=== PATIENT | female | born 1975 | race American Indian/Alaskan Native ===

== ENCOUNTER 2016-08-26 10:28 | Emergency (ER) | payer SELFPAY ==
--- NOTE | 2016-08-26 10:40 | Emergency Department Report ---
Chief Complaint: Vaginal Bleeding Stated Complaint: MENSTRUAL CRAMPING, BLEEDING Time Seen by Provider: 08/26/16 10:40 - HPI History of Present Illness: PT reports having "really, really, really heavy [vaginal] bleeding and clots" PT states 1-2 years ago she was told that she had fibroids. PT states they usually don't cause her problems. lmp 7-16-17. PT states she could not sleep last night due to the pain - PT states she took one Excedrin last night - ROS Review of Systems: + vaginal bleeding + lower abd pain - dysuria - Exam Physical Exam: PT looks well, non toxic abd is soft and non tender. pt does report lower abd pain MSE screening note: Focused history and physical exam performed. Due to findings the following was ordered: labs, us - Exam Vital Signs: Vital Signs 08/26/16 08/26/16 10:30 10:37 Temperature 98.6 F 98.6 F Pulse Rate 87 87 Respiratory 18 20 Rate Blood Pressure 159/108 Blood Pressure 136/95 [Right] O2 Sat by Pulse 100 99 Oximetry MSE screening note: Focused history and physical exam performed. Due to findings the following was ordered: ED Disposition for MSE Condition: Stable
[2016-08-26 11:40] LABS: Basophils % (Auto) 0.4 % (0.0-1.8); Eosinophils % (Auto) 3.4 % (0.0-4.3); Hematocrit 30.8 % (30.3-42.9); Hemoglobin 9.9 gm/dl (10.1-14.3); Mean Corpuscular HGB Conc 32 % (30-34); Mean Corpuscular Volume 76 fl (79-97); Platelet Count 382 K/mm3 (140-440); Red Blood Count 4.04 M/mm3 (3.65-5.03); Red Cell Distribution Width 19.1 % (13.2-15.2); White Blood Count 5.4 K/mm3 (4.5-11.0)
[2016-08-26 11:46] LABS: Anion Gap 18 mmol/L; Blood Urea Nitrogen 10 mg/dL (7-17); Calcium 8.8 mg/dL (8.4-10.2); Carbon Dioxide 22 mmol/L (22-30); Chloride 103.2 mmol/L (98-107); Glucose 100 mg/dL (65-100); Potassium 3.9 mmol/L (3.6-5.0); Sodium 139 mmol/L (137-145)
[2016-08-26 11:56] LABS: Mean Corpuscular Hemoglobin 25 pg (28-32)
--- NOTE | 2016-08-26 13:12 | Ultrasound Report ---
ULTRASOUND PELVIS COMPLETE - TRANSABDOMINAL AND TRANSVAGINAL: INDICATION: Bleeding. COMPARISON: 04/14/2014. FINDINGS: Transabdominal and transvaginal pelvic sonography performed in this patient with LMP of 08/25/2016 again demonstrates multiple fibroids with few dominant ones as follows: 1. Largest fundal fibroid exophytic off the fundus towards the right transabdominally is approximately 8.3 x 5.4 x 11.7 cm. 2. A fundal uterine fibroid is approximately 4.5 x 4.2 cm, endovaginal image 14. 3. A smaller lower uterine segment fibroid is approximately 1.8 x 1.4 cm, endovaginal image 16. Anteverted uterus estimated at 9.8 x 6.1 x 6.4 cm with endometrial thickness of approximately 0.9 cm, though may be displaced some by the fibroids. Minimal pelvic free fluid. Unremarkable right ovary measures 2.7 x 1.4 x 1.5 cm. Left ovary is 3.1 x 1.7 x 2.3 cm with a small 9 mm possibly hemorrhagic cyst. CONCLUSION: 1. Fibroids again noted, the largest pedunculated/exophytic off the fundus to the right possibly larger, as described. Please correlate. 2. Both ovaries within normal limits. Thank you for the opportunity to participate in this patient's care.
[2016-08-26 21:47] VITALS: BP 135/75
[2016-08-26 22:08] LABS: Bilirubin,Urine NEG (Negative); Blood,Urine MOD (Negative); Ketones,Urine NEG (Negative); Leukocyte Esterase,Urine NEG (Negative); Mucus,Urine 3+ /HPF; Nitrite,Urine NEG (Negative); RBC,Urine > 182.0 /HPF (0.0-6.0); Urobilinogen,Urine < 2.0 mg/dL (<2.0); WBC,Urine < 1.0 /HPF (0.0-6.0)
--- NOTE | 2016-08-26 22:33 | Emergency Department Report ---
HPI - General Chief Complaint: Vaginal Bleeding Time Seen by Provider: 08/26/16 22:06 - HPI HPI: Complaint I have measured cramps X Visit 32th year old -[place] female who states she has a history of fibroids, came to the ER today with abdominal cramps and heavy menstrual bleeding but no fever, no dysuria. Patient states symptoms have been there for the past 5 days, she states last night alone she used 5 menstrual pads. No back pain. Her symptoms were so severe that she had to miss work today. However, she states that she has a menstrual cycle monthly. ED Past Medical Hx - Past Medical History Previous Medical History?: Yes Hx Congestive Heart Failure: No Hx Diabetes: No Hx Asthma: No Hx COPD: No Hx HIV: No Additional medical history: uterine fibroids - Surgical History Past Surgical History?: No - Social History Smoking Status: Former Smoker Substance Use Type: Alcohol, Non Opiate Pain - Medications Home Medications: Home Medications Medication Instructions Recorded Confirmed Last Taken Type Vit/Iron Fumarate/FA 1 each PO QDAY #90 tablet 04/28/13 04/14/14 Unknown Rx [ Vitamin Tablet] Promethazine [Phenergan TAB] 25 mg PO Q6H PRN #20 tablet 05/09/13 04/14/14 Unknown Rx oxyCODONE /ACETAMINOPHEN [Percocet 1 tab PO Q6H PRN #14 tablet 04/16/14 Unknown Rx 5/325 mg] HYDROcodone/APAP 10-325 [Craig 1 each PO Q6HR PRN #20 tablet 11/03/14 Unknown Rx 10-325 mg TAB] traMADol [Ultram] 50 mg PO Q4HR PRN #20 tablet 11/17/15 Unknown Rx Ibuprofen [Motrin 800 MG tab] 800 mg PO Q8HR #14 tablet 08/26/16 Unknown Rx medroxyPROGESTERone ACETATE 5 mg PO QDAY #7 tablet 08/26/16 Unknown Rx [Provera] ED Review of Systems ROS: Stated complaint: MENSTRUAL CRAMPING, BLEEDING Other details as noted in HPI Comment: All other systems reviewed and negative Constitutional: weakness Genitourinary: other (abnormal menstrual cramps) Neurological: weakness Physical Exam - Physical Exam Vital Signs: Vital Signs 08/26/16 08/26/16 08/26/16 10:30 10:37 21:46 Temperature 98.6 F 98.6 F Pulse Rate 87 87 85 Respiratory 18 20 16 Rate Blood Pressure 159/108 Blood Pressure 136/95 135/75 [Right] O2 Sat by Pulse 100 99 100 Oximetry Physical Exam: Vital signs reviewed Gen. alert and oriented 3 in no distress Head atraumatic normocephalic Eyes PERR LA EOMI Chest regular rate and rhythm normal S1-S2 lungs clear bilaterally Abdomen soft nondistended Back no point tenderness paravertebral tenderness Neuro no focal deficit. Psych normal mood. patient refused ED Course Vital Signs 08/26/16 08/26/16 08/26/16 10:30 10:37 21:46 Temperature 98.6 F 98.6 F Pulse Rate 87 87 85 Respiratory 18 20 16 Rate Blood Pressure 159/108 Blood Pressure 136/95 135/75 [Right] O2 Sat by Pulse 100 99 100 Oximetry ED Medical Decision Making - Lab Data Result diagrams: 08/26/16 11:01 08/26/16 11:01 Critical care attestation.: If time is entered above; I have spent that time in minutes in the direct care of this critically ill patient, excluding procedure time. ED Disposition Clinical Impression: Abnormal uterine bleeding Disposition: DC-01 TO HOME OR SELFCARE Is pt being admited?: No Does the pt Need Aspirin: No Condition: Stable Prescriptions: medroxyPROGESTERone ACETATE [Provera] 5 mg PO QDAY #7 tablet Referrals: PRIMARY CARE [Primary Care Provider] - 3-5 Days
== END 2016-08-26 23:22 | disposition home or self-care (01) ==
LOC: ED 10:28
DX: N93.9 Abnormal uterine and vaginal bleeding, unspecified (principal); Z87.891 Personal history of nicotine dependence
CPT/HCPCS: 36415; 76830; 76856; 80048; 81001; 84703; 85025